=== PATIENT | female | born 1995 | race Caucasian/White ===

== ENCOUNTER 2017-12-20 14:17 | Emergency (ER) | payer MEDICAID, OTHER ==
[~2017-12-20] VITALS: Ht 162.6 cm; Wt 84.5 kg
[2017-12-20] MEDS ORDERED: MORPHINE SULFATE 4 MG/ML, 1ML IVPush PRN (15:00)
[2017-12-20] MEDS ORDERED: ONDANSETRON 2MG/ML, 2ML IVPush ONE (15:00)
[2017-12-20 15:02] LABS: BASOPHILS # (AUTO) 0.05 x10^3/uL (0-0.3); BASOPHILS % (AUTO) 0 % (0-1); EOSINOPHILS # (AUTO) 0.05 x10^3/uL (0-0.8); EOSINOPHILS % (AUTO) 0 % (1-7); LYMPHOCYTES # (AUTO) 2.73 x10^3/uL (1-6.1); LYMPHOCYTES % (AUTO) 19 % (22-44); MD NO; MEAN CORPUSCULAR HEMOGLOBIN 30.7 pg (27.0-34.8); MEAN CORPUSCULAR HGB CONC 34.1 g/dL (32.4-35.8); MEAN CORPUSCULAR VOLUME 89.9 fL (80-100); MEAN PLATELET VOLUME 8.6 fL (7.4-10.4); MONOCYTES # (AUTO) 0.62 x10^3/uL (0-1.4); MONOCYTES % (AUTO) 4 % (2-9); NEUTROPHILS # (AUTO) 10.65 x10^3/uL (1.8-8.0); NEUTROPHILS % (AUTO) 76 % (42-75); PLATELET COUNT 302 x10^3/uL (130-400); RED BLOOD COUNT 4.55 x10^6/uL (3.82-5.3); RED CELL DISTRIBUTION WIDTH 13.4 % (9.6-15.2)
[2017-12-20 15:15] LABS: ALANINE AMINOTRANSFERASE 18 U/L (12-78); ALBUMIN 3.7 g/dL (3.4-5.0); ANION GAP 11 mmol/L (5-15); CALCIUM 9.1 mg/dL (8.5-10.1); CHLORIDE 103 mmol/L (98-107); CREATININE 0.61 mg/dL (0.55-1.02)
[2017-12-20 15:32] LABS: ALKALINE PHOSPHATASE 54 U/L (45-117); BILIRUBIN,TOTAL 0.2 mg/dL (0.2-1.0)
[2017-12-20 16:01] VITALS: BP 127/58
[2017-12-20 16:02] LABS: CULTURE INDICATED? YES; MICROSCOPIC INDICATED
[2017-12-20] MEDS ORDERED: MORPHINE SULFATE 4 MG/ML, 1ML ONE (16:05)
[2017-12-20] MEDS ORDERED: ONDANSETRON 2MG/ML, 2ML ONE (16:06)
[2017-12-20 17:06] LABS: MICROSCOPIC NOT IND
[2017-12-20 17:10] LABS: CULTURE INDICATED? NO
== END 2017-12-20 19:05 | disposition home or self-care (01) ==
LOC: ED 16:33
DX: O26.891 Other specified pregnancy related conditions, first trimester (principal); R10.31 Right lower quadrant pain; Z3A.13 13 weeks gestation of pregnancy
CPT/HCPCS: 36415; 74181; 76801; 76857; 80053; 81001; 81003; 83690; 84702; 85025; 87086; 96374; 96375; 99285; J2405

== ENCOUNTER 2021-03-25 16:18 | Outpatient (CLI) | payer MEDICAID, OTHER ==
[~2021-03-25] VITALS: Ht 165.1 cm; Wt 95.5 kg
[2021-03-25 16:39] VITALS: BP 119/68
== END 2021-03-25 18:50 | disposition home or self-care (01) ==
LOC: LDOP 16:18
PROVIDERS: ATTEND Student in an Organized Health Care Education/Training Program
DX: O42.913 Preterm premature rupture of membranes, unspecified as to length of time between rupture and onset of labor, third trimester (principal); O36.8130 Decreased fetal movements, third trimester, not applicable or unspecified; Z3A.35 35 weeks gestation of pregnancy
CPT/HCPCS: 89060; Q0114

== ENCOUNTER 2021-04-08 00:48 | Observation (INO) | payer MEDICAID ==
[2021-04-08 02:15] LABS: MICROSCOPIC INDICATED
[2021-04-08] MEDS ORDERED: NITR100C56 PO (06:00)
== END 2021-04-08 06:30 | disposition home or self-care (01) ==
LOC: LDOP 00:48 → LDIP 02:40
PROVIDERS: ADMIT Student in an Organized Health Care Education/Training Program; ATTEND Student in an Organized Health Care Education/Training Program
DX: O62.9 Abnormality of forces of labor, unspecified (principal); O23.43 Unspecified infection of urinary tract in pregnancy, third trimester; Z3A.37 37 weeks gestation of pregnancy; Z79.899 Other long term (current) drug therapy
CPT/HCPCS: 59025; 81001; 87086; G0378